=== PATIENT | female | born 1945 | race Caucasian/White ===

== ENCOUNTER 2023-07-17 22:33 | Emergency (ER) | payer OTHER ==
[~2023-07-17] VITALS: Ht 165.1 cm; Wt 80.3 kg
[2023-07-17] MEDS ORDERED: IBUPROFEN 600 MG TABLET PO ONE (23:00)
[2023-07-17] MEDS ORDERED: IBUPROFEN 600 MG TABLET ONE (23:04)
[2023-07-18 00:10] VITALS: BP 148/80; O2SAT 97
== END 2023-07-18 00:10 | disposition home or self-care (01) ==
LOC: ER 22:36
DX: S00.03XA Contusion of scalp, initial encounter (principal); M54.50 Low back pain, unspecified; E78.5 Hyperlipidemia, unspecified; E03.9 Hypothyroidism, unspecified; I10 Essential (primary) hypertension; Z88.8 Allergy status to other drugs, medicaments and biological substances; W18.39XA Other fall on same level, initial encounter; Y93.89 Activity, other specified; Y92.89 Other specified places as the place of occurrence of the external cause; Y99.8 Other external cause status
CPT/HCPCS: 70450; 72131; 72192; A4606; A4663